=== PATIENT | female | born 1935 | race African-American/Black ===

== ENCOUNTER 2016-10-28 15:33 | Inpatient (IN) | payer MEDICARE, MEDICAID ==
[~2016-10-28] VITALS: Ht 165.1 cm; Wt 95.7 kg
[2016-10-28 15:50] VITALS: BP 161/79
[2016-10-28 16:00] VITALS: BP 161/71
[2016-10-28] MEDS ORDERED: ACETAMINOPHEN 325 MG TABLET PO PRN ×2 (16:00→17:30)
[2016-10-28] MEDS ORDERED: MAG HYDROX/AL HYDROX/SIMETH 30 ML UDC PO PRN ×2 (16:00→17:30)
[2016-10-28] MEDS ORDERED: MAGNESIUM HYDROXIDE 30 ML UDC PO PRN (16:00)
[2016-10-28] MEDS ORDERED: QUETIAPINE FUMARATE 25 MG TABLET PO PRN ×2 (16:00→17:30)
[2016-10-28] MEDS ORDERED: ATOR40TA PO (16:37)
[2016-10-28] MEDS ORDERED: DIVA125C PO (16:37)
[2016-10-28] MEDS ORDERED: BISA10SU8 RC (16:37)
[2016-10-28] MEDS ORDERED: GABA-532 PO (16:37)
[2016-10-28] MEDS ORDERED: INSU100I19 SQ (16:37)
[2016-10-28] MEDS ORDERED: FAMO20TA8 PO (16:37)
[2016-10-28] MEDS ORDERED: HYDR-4076 PO (16:37)
[2016-10-28] MEDS ORDERED: ASCO-340 PO (16:37)
[2016-10-28] MEDS ORDERED: DOCU-170 PO (16:37)
[2016-10-28] MEDS ORDERED: ZOLP5TAB2 PO (16:37)
[2016-10-28] MEDS ORDERED: POLY15DR57 EACHEYE (16:37)
[2016-10-28] MEDS ORDERED: PROT946L PO (16:37)
[2016-10-28] MEDS ORDERED: MAG30ORA PO (16:37)
[2016-10-28] MEDS ORDERED: ACET-868 PO (16:37)
[2016-10-28] MEDS ORDERED: QUET50TA PO (16:37)
[2016-10-28] MEDS ORDERED: AMLO2.5T2 PO (16:37)
[2016-10-28] MEDS ORDERED: OXYB5TAB29 PO (16:37)
[2016-10-28] MEDS ORDERED: GLIP10TA11 PO (16:37)
[2016-10-28] MEDS ORDERED: INSU100V3 SL (16:37)
[2016-10-28] MEDS ORDERED: MAGN400O6 PO (16:37)
[2016-10-28] MEDS ORDERED: LORA-258 PO (16:37)
[2016-10-28] MEDS ORDERED: BISACODYL SUPP (10 MG) 10 MG/SUPP.RECT SUPP.RECT RC PRN (17:30)
[2016-10-28] MEDS ORDERED: hydrALAZINE HCL 25 MG TABLET PO PRN (17:30)
[2016-10-28] MEDS: INSULIN REGULAR, HUMAN 100 UNIT/ML 3 ML VIAL SQ PRN (17:43)
[2016-10-28] MEDS: glipiZIDE 10 MG TABLET PO SCH (17:47)
[2016-10-28] MEDS: PROSOURCE / PROSTAT (PYXIS) 30 ML UDC PO SCH (17:48)
[2016-10-28] MEDS ORDERED: DEXTROSE 50%-WATER 50 ML DISP.SYRIN IV PRN (18:00)
[2016-10-28] MEDS: POLYVINYL ALCOHOL 15 ML BOTTLE EACHEYE SCH (19:26)
[2016-10-28] MEDS ORDERED: Z GUARD REMEDY 2 OZ OINT TP PRN (20:00)
[2016-10-28] MEDS: INSULIN DETEMIR 100 UNIT/ML CARTRIDGE SQ SCH (20:46)
[2016-10-28] MEDS: BLOOD SUGAR DIAGNOSTIC 1 EACH STRIP IN SCH (20:52)
[2016-10-28] MEDS: QUETIAPINE FUMARATE 25 MG TABLET PO SCH (21:07)
[2016-10-28] MEDS: FAMOTIDINE (20 MG) 20 MG TABLET PO SCH (21:07)
[2016-10-28 21:11] VITALS: BP 121/72
[2016-10-28] MEDS ORDERED: MAGNESIUM HYDROXIDE 30 ML UDC PO SCH (22:00)
[2016-10-29 08:00] VITALS: BP 113/62
[2016-10-29] MEDS: BLOOD SUGAR DIAGNOSTIC 1 EACH STRIP IN SCH ×4 (08:20→22:06)
[2016-10-29 08:37] LABS: CHOLESTEROL 155 mg/dL (<200); HDL CHOLESTEROL 31 mg/dL (40-60); LDL 106 mg/dL (0-99); TRIGLYCERIDES 95 mg/dL (30-150)
[2016-10-29 08:44] LABS: ALBUMIN 3.1 g/dL (3.4-5.0); BILIRUBIN,TOTAL 0.3 mg/dL (0.2-1.0); CALCIUM, SERUM 8.9 mg/dL (8.5-10.1); CREATININE 1.5 mg/dL (0.6-1.3); POTASSIUM 4.6 mmol/L (3.5-5.1); TOTAL PROTEIN, SERUM 7.1 g/dL (6.4-8.2)
[2016-10-29] MEDS: INSULIN DETEMIR 100 UNIT/ML CARTRIDGE SQ SCH ×2 (09:00→21:33)
[2016-10-29] MEDS: ATORVASTATIN 40 MG TABLET PO SCH (09:43)
[2016-10-29] MEDS: ASCORBIC ACID 500 MG TABLET PO SCH (09:43)
[2016-10-29] MEDS: DOCUSATE SODIUM 100 MG CAPSULE PO SCH ×2 (09:43→17:00)
[2016-10-29] MEDS: OXYBUTYNIN CHLORIDE ER 5 MG TAB PO SCH (09:44)
[2016-10-29] MEDS: AMLODIPINE BESYLATE 2.5 MG TABLET PO SCH (09:44)
[2016-10-29] MEDS: glipiZIDE 10 MG TABLET PO SCH ×2 (09:45→17:53)
[2016-10-29] MEDS: GABAPENTIN 100 MG CAPSULE PO SCH ×3 (09:45→17:53)
[2016-10-29] MEDS: OXCARBAZEPINE 150 MG TABLET PO SCH ×2 (09:45→17:53)
[2016-10-29] MEDS: POLYVINYL ALCOHOL 15 ML BOTTLE EACHEYE SCH ×3 (09:50→17:00)
[2016-10-29] MEDS: PROSOURCE / PROSTAT (PYXIS) 30 ML UDC PO SCH ×3 (09:51→17:53)
[2016-10-29] MEDS: INSULIN REGULAR, HUMAN 100 UNIT/ML 3 ML VIAL SQ PRN ×4 (11:40→22:08)
[2016-10-29 16:00] VITALS: BP 122/62
[2016-10-29 19:57] VITALS: BP 122/62
[2016-10-29] MEDS: QUETIAPINE FUMARATE 25 MG TABLET PO SCH (21:42)
[2016-10-29] MEDS: FAMOTIDINE (20 MG) 20 MG TABLET PO SCH (21:42)
[2016-10-29] MEDS: ZOLPIDEM TARTRATE 5 MG TABLET PO PRN (22:28)
[2016-10-30] MEDS: BLOOD SUGAR DIAGNOSTIC 1 EACH STRIP IN SCH ×4 (07:30→21:52)
[2016-10-30 08:00] VITALS: BP 150/70
[2016-10-30] MEDS: OXCARBAZEPINE 150 MG TABLET PO SCH ×2 (09:00→17:00)
[2016-10-30] MEDS: AMLODIPINE BESYLATE 2.5 MG TABLET PO SCH (09:00)
[2016-10-30] MEDS: GABAPENTIN 100 MG CAPSULE PO SCH ×3 (09:00→17:00)
[2016-10-30] MEDS: ASCORBIC ACID 500 MG TABLET PO SCH (09:00)
[2016-10-30] MEDS: DOCUSATE SODIUM 100 MG CAPSULE PO SCH ×2 (09:00→17:00)
[2016-10-30] MEDS: POLYVINYL ALCOHOL 15 ML BOTTLE EACHEYE SCH ×3 (09:00→17:00)
[2016-10-30] MEDS: PROSOURCE / PROSTAT (PYXIS) 30 ML UDC PO SCH ×3 (09:00→17:00)
[2016-10-30] MEDS: ATORVASTATIN 40 MG TABLET PO SCH (09:00)
[2016-10-30] MEDS: OXYBUTYNIN CHLORIDE ER 5 MG TAB PO SCH (09:00)
[2016-10-30] MEDS: glipiZIDE 10 MG TABLET PO SCH ×2 (09:00→17:00)
[2016-10-30] MEDS: INSULIN DETEMIR 100 UNIT/ML CARTRIDGE SQ SCH ×2 (09:00→21:43)
[2016-10-30 10:52] LABS: BASOPHILS % (AUTO) 0.3 % (0.0-2.0); DIFF TOTAL % 100 %; EOSINOPHILS # (AUTO) 0.1 /CMM (0.0-0.7); EOSINOPHILS % (AUTO) 1.3 % (0.0-6.0); HEMATOCRIT 38 % (33-45); HEMOGLOBIN 12.2 g/dL (11.5-14.8); LYMPHOCYTES # (AUTO) 2.4 /CMM (0.8-4.8); LYMPHOCYTES % (AUTO) 27.6 % (20.0-44.0); MEAN CORPUSCULAR HEMOGLOBIN 28 PG (26.0-33.0); MEAN CORPUSCULAR HGB CONC 32 g/dl (31.0-36.0); MEAN CORPUSCULAR VOLUME 86 fL (82-100); MONOCYTES # (AUTO) 0.7 /CMM (0.1-1.30); NEUTROPHILS # (AUTO) 5.4 /CMM (1.8-8.9); NEUTROPHILS % (AUTO) 62.8 % (43.0-81.0); PLATELET COUNT (AUTO) 235 /CMM (150-450); RED BLOOD CELL COUNT(AUTO) 4.46 MIL/uL (4.0-5.2); WHITE BLOOD COUNT (AUTO) 8.7 K/uL (4.3-11.0)
[2016-10-30 16:00] VITALS: BP 134/83
[2016-10-30 20:00] VITALS: BP 118/66
[2016-10-30] MEDS: QUETIAPINE FUMARATE 25 MG TABLET PO SCH (21:28)
[2016-10-30] MEDS: FAMOTIDINE (20 MG) 20 MG TABLET PO SCH (21:28)
[2016-10-30] MEDS: INSULIN REGULAR, HUMAN 100 UNIT/ML 3 ML VIAL SQ PRN (21:46)
[2016-10-30] MEDS: ZOLPIDEM TARTRATE 5 MG TABLET PO PRN (22:48)
[2016-10-31 07:40] LABS: CALCIUM, SERUM 9.1 mg/dL (8.5-10.1); CREATININE 1.4 mg/dL (0.6-1.3); PHOSPHORUS 4.3 mg/dL (2.5-4.9); POTASSIUM 4.7 mmol/L (3.5-5.1)
[2016-10-31] MEDS: BLOOD SUGAR DIAGNOSTIC 1 EACH STRIP IN SCH ×4 (07:41→21:40)
[2016-10-31 08:00] VITALS: BP 134/78
[2016-10-31] MEDS: POLYVINYL ALCOHOL 15 ML BOTTLE EACHEYE SCH ×3 (08:40→16:36)
[2016-10-31] MEDS: ASCORBIC ACID 500 MG TABLET PO SCH (08:42)
[2016-10-31] MEDS: ATORVASTATIN 40 MG TABLET PO SCH (08:42)
[2016-10-31] MEDS: INSULIN DETEMIR 100 UNIT/ML CARTRIDGE SQ SCH ×2 (08:42→21:41)
[2016-10-31] MEDS: glipiZIDE 10 MG TABLET PO SCH ×2 (08:42→16:37)
[2016-10-31] MEDS: GABAPENTIN 100 MG CAPSULE PO SCH ×3 (08:43→16:37)
[2016-10-31] MEDS: AMLODIPINE BESYLATE 2.5 MG TABLET PO SCH (08:43)
[2016-10-31] MEDS: OXYBUTYNIN CHLORIDE ER 5 MG TAB PO SCH (08:43)
[2016-10-31] MEDS: DOCUSATE SODIUM 100 MG CAPSULE PO SCH ×2 (08:43→16:38)
[2016-10-31] MEDS: OXCARBAZEPINE 150 MG TABLET PO SCH ×2 (08:43→16:37)
[2016-10-31] MEDS: SITAGLIPTIN PHOSPHATE 50 MG TABLET PO SCH (08:44)
[2016-10-31] MEDS: PROSOURCE / PROSTAT (PYXIS) 30 ML UDC PO SCH ×3 (08:44→16:37)
[2016-10-31] MEDS ORDERED: SITAGLIPTIN PHOSPHATE 50 MG TABLET PO SCH (09:00)
[2016-10-31] MEDS: INSULIN REGULAR, HUMAN 100 UNIT/ML 3 ML VIAL SQ PRN ×2 (12:16→17:31)
[2016-10-31 16:05] VITALS: BP 133/75
[2016-10-31 20:00] VITALS: BP_SYST 128; BP_SYST 134; BP_DIAS 62; BP_DIAS 76
[2016-10-31] MEDS: FAMOTIDINE (20 MG) 20 MG TABLET PO SCH (21:38)
[2016-10-31] MEDS: QUETIAPINE FUMARATE 25 MG TABLET PO SCH (21:38)
[2016-10-31] MEDS: ZOLPIDEM TARTRATE 5 MG TABLET PO PRN (21:38)
[2016-11-01] MEDS: BLOOD SUGAR DIAGNOSTIC 1 EACH STRIP IN SCH ×4 (07:30→21:25)
[2016-11-01 08:00] VITALS: BP 138/61
[2016-11-01] MEDS: AMLODIPINE BESYLATE 2.5 MG TABLET PO SCH (08:34)
[2016-11-01] MEDS: SITAGLIPTIN PHOSPHATE 50 MG TABLET PO SCH (08:35)
[2016-11-01] MEDS: OXYBUTYNIN CHLORIDE ER 5 MG TAB PO SCH (08:35)
[2016-11-01] MEDS: glipiZIDE 10 MG TABLET PO SCH ×2 (08:35→17:04)
[2016-11-01] MEDS: GABAPENTIN 100 MG CAPSULE PO SCH ×3 (08:35→17:03)
[2016-11-01] MEDS: PROSOURCE / PROSTAT (PYXIS) 30 ML UDC PO SCH ×3 (08:35→17:05)
[2016-11-01] MEDS: QUETIAPINE FUMARATE 25 MG TABLET PO SCH ×3 (08:35→21:34)
[2016-11-01] MEDS: ASCORBIC ACID 500 MG TABLET PO SCH (08:36)
[2016-11-01] MEDS: ATORVASTATIN 40 MG TABLET PO SCH (08:36)
[2016-11-01] MEDS: OXCARBAZEPINE 150 MG TABLET PO SCH ×3 (08:36→17:03)
[2016-11-01] MEDS: DOCUSATE SODIUM 100 MG CAPSULE PO SCH ×2 (08:36→17:03)
[2016-11-01] MEDS: INSULIN DETEMIR 100 UNIT/ML CARTRIDGE SQ SCH ×2 (08:45→21:27)
[2016-11-01] MEDS: POLYVINYL ALCOHOL 15 ML BOTTLE EACHEYE SCH ×3 (08:47→17:03)
[2016-11-01] MEDS: INSULIN REGULAR, HUMAN 100 UNIT/ML 3 ML VIAL SQ PRN ×3 (12:12→21:28)
[2016-11-01 16:00] VITALS: BP 140/85
[2016-11-01 16:12] VITALS: BP 140/85
[2016-11-01 20:00] VITALS: BP 122/54
[2016-11-01] MEDS: FAMOTIDINE (20 MG) 20 MG TABLET PO SCH (21:34)
[2016-11-01] MEDS: ZOLPIDEM TARTRATE 5 MG TABLET PO PRN (21:34)
[2016-11-02 08:05] VITALS: BP 127/77
[2016-11-02] MEDS: BLOOD SUGAR DIAGNOSTIC 1 EACH STRIP IN SCH ×4 (08:40→21:41)
[2016-11-02] MEDS: INSULIN REGULAR, HUMAN 100 UNIT/ML 3 ML VIAL SQ PRN ×3 (09:02→18:32)
[2016-11-02] MEDS: INSULIN DETEMIR 100 UNIT/ML CARTRIDGE SQ SCH ×2 (09:15→21:00)
[2016-11-02] MEDS: POLYVINYL ALCOHOL 15 ML BOTTLE EACHEYE SCH ×3 (10:10→19:11)
[2016-11-02] MEDS: OXYBUTYNIN CHLORIDE ER 5 MG TAB PO SCH (10:10)
[2016-11-02] MEDS: DOCUSATE SODIUM 100 MG CAPSULE PO SCH ×2 (10:10→19:13)
[2016-11-02] MEDS: QUETIAPINE FUMARATE 25 MG TABLET PO SCH ×3 (10:10→21:41)
[2016-11-02] MEDS: AMLODIPINE BESYLATE 2.5 MG TABLET PO SCH (10:10)
[2016-11-02] MEDS: glipiZIDE 10 MG TABLET PO SCH ×2 (10:10→19:13)
[2016-11-02] MEDS: GABAPENTIN 100 MG CAPSULE PO SCH ×3 (10:10→19:13)
[2016-11-02] MEDS: OXCARBAZEPINE 150 MG TABLET PO SCH ×3 (10:10→19:13)
[2016-11-02] MEDS: ASCORBIC ACID 500 MG TABLET PO SCH (10:10)
[2016-11-02] MEDS: PROSOURCE / PROSTAT (PYXIS) 30 ML UDC PO SCH ×3 (10:10→19:12)
[2016-11-02] MEDS: ATORVASTATIN 40 MG TABLET PO SCH (10:10)
[2016-11-02 15:53] VITALS: BP 131/75
[2016-11-02 19:53] VITALS: BP 126/76
[2016-11-02] MEDS: FAMOTIDINE (20 MG) 20 MG TABLET PO SCH (21:41)
[2016-11-03] MEDS: BLOOD SUGAR DIAGNOSTIC 1 EACH STRIP IN SCH ×4 (07:54→21:05)
[2016-11-03] MEDS: INSULIN REGULAR, HUMAN 100 UNIT/ML 3 ML VIAL SQ PRN ×3 (07:57→20:56)
[2016-11-03 08:00] VITALS: BP 143/78
[2016-11-03] MEDS ORDERED: QUETIAPINE FUMARATE 25 MG TABLET PO SCH ×2 (09:00→13:00)
[2016-11-03] MEDS: POLYVINYL ALCOHOL 15 ML BOTTLE EACHEYE SCH ×3 (09:00→17:00)
[2016-11-03] MEDS: DOCUSATE SODIUM 100 MG CAPSULE PO SCH ×2 (09:15→17:27)
[2016-11-03] MEDS: PROSOURCE / PROSTAT (PYXIS) 30 ML UDC PO SCH ×3 (09:15→17:27)
[2016-11-03] MEDS: OXYBUTYNIN CHLORIDE ER 5 MG TAB PO SCH (09:15)
[2016-11-03] MEDS: SITAGLIPTIN PHOSPHATE 50 MG TABLET PO SCH (09:15)
[2016-11-03] MEDS: ASCORBIC ACID 500 MG TABLET PO SCH (09:15)
[2016-11-03] MEDS: AMLODIPINE BESYLATE 2.5 MG TABLET PO SCH (09:16)
[2016-11-03] MEDS: ATORVASTATIN 40 MG TABLET PO SCH (09:16)
[2016-11-03] MEDS: OXCARBAZEPINE 150 MG TABLET PO SCH ×3 (09:16→17:27)
[2016-11-03] MEDS: GABAPENTIN 100 MG CAPSULE PO SCH ×3 (09:16→17:27)
[2016-11-03] MEDS: glipiZIDE 10 MG TABLET PO SCH ×2 (09:16→17:27)
[2016-11-03] MEDS: INSULIN DETEMIR 100 UNIT/ML CARTRIDGE SQ SCH ×2 (09:35→20:54)
[2016-11-03 16:00] VITALS: BP 128/88
[2016-11-03 20:00] VITALS: BP 124/66
[2016-11-03] MEDS: FAMOTIDINE (20 MG) 20 MG TABLET PO SCH (21:29)
[2016-11-03] MEDS: QUETIAPINE FUMARATE 25 MG TABLET PO SCH (21:30)
[2016-11-03] MEDS ORDERED: NITROFURANTOIN/NITROFURAN MAC 100 MG CAPSULE ONE (23:07)
[2016-11-03] MEDS: NITROFURANTOIN/NITROFURAN MAC 100 MG CAPSULE PO SCH (23:12)
[2016-11-04] MEDS: BLOOD SUGAR DIAGNOSTIC 1 EACH STRIP IN SCH ×4 (07:46→21:35)
[2016-11-04] MEDS: OXCARBAZEPINE 150 MG TABLET PO SCH ×3 (08:24→16:22)
[2016-11-04] MEDS: DOCUSATE SODIUM 100 MG CAPSULE PO SCH ×2 (08:24→16:21)
[2016-11-04] MEDS: QUETIAPINE FUMARATE 25 MG TABLET PO SCH ×3 (08:24→21:22)
[2016-11-04] MEDS: AMLODIPINE BESYLATE 2.5 MG TABLET PO SCH (08:24)
[2016-11-04] MEDS: SITAGLIPTIN PHOSPHATE 50 MG TABLET PO SCH (08:24)
[2016-11-04] MEDS: glipiZIDE 10 MG TABLET PO SCH ×2 (08:24→16:21)
[2016-11-04] MEDS: ATORVASTATIN 40 MG TABLET PO SCH (08:24)
[2016-11-04] MEDS: GABAPENTIN 100 MG CAPSULE PO SCH ×3 (08:25→16:21)
[2016-11-04] MEDS: PROSOURCE / PROSTAT (PYXIS) 30 ML UDC PO SCH ×3 (08:25→16:22)
[2016-11-04] MEDS: OXYBUTYNIN CHLORIDE ER 5 MG TAB PO SCH (08:25)
[2016-11-04 08:50] VITALS: BP 107/60
[2016-11-04] MEDS: POLYVINYL ALCOHOL 15 ML BOTTLE EACHEYE SCH ×3 (09:16→16:25)
[2016-11-04] MEDS: ASCORBIC ACID 500 MG TABLET PO SCH (09:16)
[2016-11-04] MEDS: NITROFURANTOIN/NITROFURAN MAC 100 MG CAPSULE PO SCH ×2 (09:16→16:21)
[2016-11-04] MEDS: INSULIN REGULAR, HUMAN 100 UNIT/ML 3 ML VIAL SQ PRN ×4 (09:17→21:39)
[2016-11-04] MEDS: INSULIN DETEMIR 100 UNIT/ML CARTRIDGE SQ SCH ×2 (09:29→21:44)
[2016-11-04 16:31] VITALS: BP 154/84
[2016-11-04 20:00] VITALS: BP 113/63
[2016-11-04 20:07] VITALS: BP 113/63
[2016-11-04] MEDS: FAMOTIDINE (20 MG) 20 MG TABLET PO SCH (21:22)
[2016-11-05 08:00] VITALS: BP 137/77
[2016-11-05] MEDS: BLOOD SUGAR DIAGNOSTIC 1 EACH STRIP IN SCH ×4 (08:21→21:46)
[2016-11-05] MEDS: glipiZIDE 10 MG TABLET PO SCH ×2 (09:00→18:54)
[2016-11-05] MEDS: SITAGLIPTIN PHOSPHATE 50 MG TABLET PO SCH (09:00)
[2016-11-05] MEDS: NITROFURANTOIN/NITROFURAN MAC 100 MG CAPSULE PO SCH ×2 (09:16→18:55)
[2016-11-05] MEDS: INSULIN DETEMIR 100 UNIT/ML CARTRIDGE SQ SCH ×2 (09:16→21:45)
[2016-11-05] MEDS: DOCUSATE SODIUM 100 MG CAPSULE PO SCH ×2 (09:17→18:55)
[2016-11-05] MEDS: AMLODIPINE BESYLATE 2.5 MG TABLET PO SCH (09:17)
[2016-11-05] MEDS: ATORVASTATIN 40 MG TABLET PO SCH (09:17)
[2016-11-05] MEDS: GABAPENTIN 100 MG CAPSULE PO SCH ×3 (09:17→18:54)
[2016-11-05] MEDS: QUETIAPINE FUMARATE 25 MG TABLET PO SCH ×3 (09:18→20:55)
[2016-11-05] MEDS: ASCORBIC ACID 500 MG TABLET PO SCH (09:18)
[2016-11-05] MEDS: OXCARBAZEPINE 150 MG TABLET PO SCH ×3 (09:18→18:49)
[2016-11-05] MEDS: OXYBUTYNIN CHLORIDE ER 5 MG TAB PO SCH (09:18)
[2016-11-05] MEDS: PROSOURCE / PROSTAT (PYXIS) 30 ML UDC PO SCH ×3 (09:19→17:00)
[2016-11-05] MEDS: POLYVINYL ALCOHOL 15 ML BOTTLE EACHEYE SCH ×3 (09:20→17:00)
[2016-11-05 12:00] VITALS: BP 125/75
[2016-11-05] MEDS: INSULIN REGULAR, HUMAN 100 UNIT/ML 3 ML VIAL SQ PRN ×2 (12:29→21:48)
[2016-11-05 16:00] VITALS: BP 125/75
[2016-11-05 20:00] VITALS: BP 126/69
[2016-11-05] MEDS: FAMOTIDINE (20 MG) 20 MG TABLET PO SCH (20:55)
[2016-11-06] MEDS: BLOOD SUGAR DIAGNOSTIC 1 EACH STRIP IN SCH ×4 (07:36→22:42)
[2016-11-06 08:00] VITALS: BP 113/65
[2016-11-06] MEDS: GABAPENTIN 100 MG CAPSULE PO SCH ×3 (08:52→16:19)
[2016-11-06] MEDS: PROSOURCE / PROSTAT (PYXIS) 30 ML UDC PO SCH ×3 (08:52→16:19)
[2016-11-06] MEDS: SITAGLIPTIN PHOSPHATE 50 MG TABLET PO SCH (08:53)
[2016-11-06] MEDS: ASCORBIC ACID 500 MG TABLET PO SCH (08:53)
[2016-11-06] MEDS: AMLODIPINE BESYLATE 2.5 MG TABLET PO SCH (08:53)
[2016-11-06] MEDS: glipiZIDE 10 MG TABLET PO SCH ×2 (08:53→16:19)
[2016-11-06] MEDS: QUETIAPINE FUMARATE 25 MG TABLET PO SCH ×3 (08:53→22:41)
[2016-11-06] MEDS: NITROFURANTOIN/NITROFURAN MAC 100 MG CAPSULE PO SCH ×2 (08:54→16:19)
[2016-11-06] MEDS: OXYBUTYNIN CHLORIDE ER 5 MG TAB PO SCH (08:54)
[2016-11-06] MEDS: DOCUSATE SODIUM 100 MG CAPSULE PO SCH ×2 (08:54→16:19)
[2016-11-06] MEDS: ATORVASTATIN 40 MG TABLET PO SCH (09:00)
[2016-11-06] MEDS: POLYVINYL ALCOHOL 15 ML BOTTLE EACHEYE SCH ×3 (09:13→16:27)
[2016-11-06] MEDS: INSULIN REGULAR, HUMAN 100 UNIT/ML 3 ML VIAL SQ PRN ×2 (09:14→12:21)
[2016-11-06] MEDS: INSULIN DETEMIR 100 UNIT/ML CARTRIDGE SQ SCH ×2 (09:16→22:43)
[2016-11-06] MEDS: OXCARBAZEPINE 150 MG TABLET PO SCH ×2 (12:28→16:18)
[2016-11-06 16:00] VITALS: BP 121/83
[2016-11-06 20:00] VITALS: BP 127/79
[2016-11-06] MEDS: FAMOTIDINE (20 MG) 20 MG TABLET PO SCH (22:41)
[2016-11-06] MEDS: ZOLPIDEM TARTRATE 5 MG TABLET PO PRN (22:41)
[2016-11-07] MEDS: BLOOD SUGAR DIAGNOSTIC 1 EACH STRIP IN SCH ×4 (07:37→21:37)
[2016-11-07] MEDS: INSULIN REGULAR, HUMAN 100 UNIT/ML 3 ML VIAL SQ PRN ×2 (07:49→12:21)
[2016-11-07 08:00] VITALS: BP 122/79
[2016-11-07] MEDS: INSULIN DETEMIR 100 UNIT/ML CARTRIDGE SQ SCH ×2 (08:48→21:51)
[2016-11-07] MEDS: AMLODIPINE BESYLATE 2.5 MG TABLET PO SCH (08:52)
[2016-11-07] MEDS: NITROFURANTOIN/NITROFURAN MAC 100 MG CAPSULE PO SCH ×2 (08:52→18:19)
[2016-11-07] MEDS: PROSOURCE / PROSTAT (PYXIS) 30 ML UDC PO SCH ×3 (08:52→18:18)
[2016-11-07] MEDS: OXYBUTYNIN CHLORIDE ER 5 MG TAB PO SCH (08:52)
[2016-11-07] MEDS: ATORVASTATIN 40 MG TABLET PO SCH (08:53)
[2016-11-07] MEDS: GABAPENTIN 100 MG CAPSULE PO SCH ×3 (08:53→18:19)
[2016-11-07] MEDS: glipiZIDE 10 MG TABLET PO SCH ×2 (08:53→18:18)
[2016-11-07] MEDS: QUETIAPINE FUMARATE 25 MG TABLET PO SCH ×3 (08:53→21:37)
[2016-11-07] MEDS: DOCUSATE SODIUM 100 MG CAPSULE PO SCH ×2 (08:53→18:19)
[2016-11-07] MEDS: POLYVINYL ALCOHOL 15 ML BOTTLE EACHEYE SCH ×3 (09:00→18:20)
[2016-11-07] MEDS: OXCARBAZEPINE 150 MG TABLET PO SCH ×3 (09:06→18:18)
[2016-11-07] MEDS: SITAGLIPTIN PHOSPHATE 50 MG TABLET PO SCH (10:18)
[2016-11-07] MEDS: ASCORBIC ACID 500 MG TABLET PO SCH (10:18)
[2016-11-07 16:00] VITALS: BP 104/56
[2016-11-07 20:00] VITALS: BP 125/79
[2016-11-07] MEDS: FAMOTIDINE (20 MG) 20 MG TABLET PO SCH (21:37)
[2016-11-08] MEDS: BLOOD SUGAR DIAGNOSTIC 1 EACH STRIP IN SCH ×2 (07:52→12:11)
[2016-11-08] MEDS: INSULIN REGULAR, HUMAN 100 UNIT/ML 3 ML VIAL SQ PRN ×2 (07:58→12:11)
[2016-11-08 08:00] VITALS: BP 144/91
[2016-11-08 08:36] VITALS: BP 144/91
[2016-11-08] MEDS: AMLODIPINE BESYLATE 2.5 MG TABLET PO SCH (08:36)
[2016-11-08] MEDS: DOCUSATE SODIUM 100 MG CAPSULE PO SCH (08:36)
[2016-11-08] MEDS: glipiZIDE 10 MG TABLET PO SCH (08:36)
[2016-11-08] MEDS: POLYVINYL ALCOHOL 15 ML BOTTLE EACHEYE SCH ×2 (08:36→12:23)
[2016-11-08] MEDS: NITROFURANTOIN/NITROFURAN MAC 100 MG CAPSULE PO SCH (08:37)
[2016-11-08] MEDS: QUETIAPINE FUMARATE 25 MG TABLET PO SCH (08:37)
[2016-11-08] MEDS: GABAPENTIN 100 MG CAPSULE PO SCH ×2 (08:37→12:22)
[2016-11-08] MEDS: ASCORBIC ACID 500 MG TABLET PO SCH (08:37)
[2016-11-08] MEDS: OXCARBAZEPINE 150 MG TABLET PO SCH ×2 (08:37→12:22)
[2016-11-08] MEDS: OXYBUTYNIN CHLORIDE ER 5 MG TAB PO SCH (08:37)
[2016-11-08] MEDS: SITAGLIPTIN PHOSPHATE 50 MG TABLET PO SCH (08:37)
[2016-11-08] MEDS: ATORVASTATIN 40 MG TABLET PO SCH (08:37)
[2016-11-08] MEDS: INSULIN DETEMIR 100 UNIT/ML CARTRIDGE SQ SCH (08:42)
[2016-11-08] MEDS: PROSOURCE / PROSTAT (PYXIS) 30 ML UDC PO SCH ×2 (08:50→12:17)
[2016-11-08] MEDS ORDERED: QUETIAPINE FUMARATE 25 MG TABLET PO SCH (13:00)
== END 2016-11-08 15:20 | DRG 885 ==
LOC: GPS 15:33
PROVIDERS: ADMIT Psychiatry & Neurology Psychiatry; ATTEND Internal Medicine Nephrology
DX: F25.9 Schizoaffective disorder, unspecified (principal); N18.9 Chronic kidney disease, unspecified; G93.40 Encephalopathy, unspecified; N39.0 Urinary tract infection, site not specified; E11.22 Type 2 diabetes mellitus with diabetic chronic kidney disease; E11.40 Type 2 diabetes mellitus with diabetic neuropathy, unspecified; I12.9 Hypertensive chronic kidney disease with stage 1 through stage 4 chronic kidney disease, or unspecified chronic kidney disease; J44.9 Chronic obstructive pulmonary disease, unspecified; M62.81 Muscle weakness (generalized); Z86.73 Personal history of transient ischemic attack (TIA), and cerebral infarction without residual deficits; K21.9 Gastro-esophageal reflux disease without esophagitis; F31.9 Bipolar disorder, unspecified
CPT/HCPCS: 36415; 80048-TC; 80053-TC; 80061-TC; 82962-TC; 83735-TC; 84100-TC; 85025-TC; 87081-TC; 87086-TC; 87186-TC; 97001-TC; 97530-TC; J1815